=== PATIENT | female | born 1990 | race Caucasian/White ===

== ENCOUNTER → 2018-01-09 21:01 | Outpatient (CLI) | payer MEDICAID, SELFPAY ==
[2018-01-15 09:43] LABS: HPV Reflexed? NOT INDICATED
== END ==
PROVIDERS: Referring Provider Obstetrics & Gynecology; Visit Provider Obstetrics & Gynecology
DX: Z12.4 Encounter for screening for malignant neoplasm of cervix (principal)
CPT/HCPCS: 88175; G0145

== ENCOUNTER → 2018-02-01 15:35 | Outpatient (CLI) | payer MEDICAID, SELFPAY ==
[2018-02-01 21:12] LABS: Chlamydia Trachomatis by PCR Negative (Negative); Neisserai gonorrhoeae by PCR Negative (Negative); Probe Check PASS; Sample Adequacy Control PASS; Specimen Processing Control PASS
== END ==
PROVIDERS: Visit Provider Obstetrics & Gynecology
DX: Z11.3 Encounter for screening for infections with a predominantly sexual mode of transmission (principal)
CPT/HCPCS: 87491; 87591